=== PATIENT | female | born 1960 | race Caucasian/White ===

== ENCOUNTER 2021-02-03 01:36 | Emergency (ER) | payer MEDICARE ==
[~2021-02-03] VITALS: Ht 160 cm; Wt 113.4 kg
[2021-02-03 03:44] LABS: HEMOGLOBIN 13.4 gm/dl (12.3-15.3); RED BLOOD COUNT 4.62 M/UL (4.00-5.10); WHITE BLOOD COUNT 9.2 K/UL (4.5-11.0)
[2021-02-03 03:58] LABS: BUN/CREATININE RATIO 12 (0-10)
[2021-02-03] MEDS ORDERED: PROAIR HFA8.5 GM INH (04:59)
[2021-02-03] MEDS ORDERED: PREDNISONE 20 M20 MG PO (04:59)
== END 2021-02-03 08:00 | disposition home or self-care (01) ==
LOC: ER1 01:36
PROVIDERS: Physician Assistant
DX: U07.1 COVID-19 (principal); J40 Bronchitis, not specified as acute or chronic; J98.01 Acute bronchospasm; R20.2 Paresthesia of skin; R61 Generalized hyperhidrosis; I12.9 Hypertensive chronic kidney disease with stage 1 through stage 4 chronic kidney disease, or unspecified chronic kidney disease; N18.9 Chronic kidney disease, unspecified; F17.200 Nicotine dependence, unspecified, uncomplicated; E03.9 Hypothyroidism, unspecified; Z90.89 Acquired absence of other organs; Z20.822 Contact with and (suspected) exposure to COVID-19; Z88.0 Allergy status to penicillin
CPT/HCPCS: 70450; 71045; 80053; 81001; 82550; 82553; 83874; 84484; 85025; 93005; 94664; 99285; M0243; U0002

== ENCOUNTER 2021-02-07 18:16 | Emergency (ER) | payer MEDICARE, OTHER ==
[~2021-02-07 18:16] MED LIST: PREDNISONE 20 M20 MG PO; PROAIR HFA8.5 GM INH
[2021-02-07 19:49] LABS: HEMOGLOBIN 13.6 gm/dl (12.3-15.3); RED BLOOD COUNT 4.71 M/UL (4.00-5.10); WHITE BLOOD COUNT 11.1 K/UL (4.5-11.0)
== END 2021-02-08 00:19 | disposition home or self-care (01) ==
LOC: ER1 18:16
PROVIDERS: Physician Assistant Medical
DX: E86.0 Dehydration (principal); E87.6 Hypokalemia; I11.9 Hypertensive heart disease without heart failure; J44.9 Chronic obstructive pulmonary disease, unspecified; Z20.822 Contact with and (suspected) exposure to COVID-19; F17.210 Nicotine dependence, cigarettes, uncomplicated; Z88.1 Allergy status to other antibiotic agents
CPT/HCPCS: 71045; 80053; 82550; 82553; 83605; 83874; 83880; 84484; 85025; 93005; 99285; U0002